=== PATIENT | female | born 1970 | race Caucasian/White ===

== ENCOUNTER 2018-11-04 09:11 | Day surgery (SDC) | payer BC, MEDICARE ==
[~2018-11-04 09:11] MED LIST: CEFAZOLIN 2 Gram 2 GM/50 ML BAG IVPB ONE; MECLIZINE 25 MG TABLET PO ONE
[2018-11-04] MEDS ORDERED: DEXAMETHASONE 4 MG/ML 1ML VIAL IVP ONE (09:12)
[2018-11-04] MEDS ORDERED: ONDANSETRON HCL IV 4 MG/2 ML VIAL IVP ONE (09:12)
[2018-11-04] MEDS ORDERED: ALPRAZOLAM 1 MG TAB PO ONE (09:12)
[2018-11-04] MEDS ORDERED: SEVOFLURANE 250 ML INH ONE (09:12)
[2018-11-04] MEDS ORDERED: PROPOFOL 10 MG/ML VIAL IV ONE (09:12)
[2018-11-04] MEDS ORDERED: LIDOCAINE 2% MDV (20MG/ML) 20ML VIAL IV ONE (09:12)
[2018-11-04] MEDS ORDERED: FENTANYL PF 100MCG/2ML VIAL IV ONE (09:12)
[2018-11-04] MEDS ORDERED: MIDAZOLAM HCL 2MG/2ML VIAL IV ONE (09:12)
[2018-11-04] MEDS ORDERED: BUPIVACAINE 0.25% MPF 30ML VIAL IVP ONE (09:12)
[2018-11-04] MEDS ORDERED: MORPHINE SULFATE PF 10MG/10ML VIAL IV ONE (09:12)
[2018-11-04] MEDS ORDERED: HYDROMORPHONE HCL 2 MG/ML VIAL IV ONE (09:12)
[2018-11-04] MEDS ORDERED: METHYLPREDNISOLONE 40MG/VIAL IM ONE (11:29)
[2018-11-04] MEDS ORDERED: BUPIVACAINE 0.5% W/EPI MPF 30 ML VIAL SQ ONE ×2 (11:29)
[2018-11-04] MEDS ORDERED: MORPHINE SULFATE 5 MG/ML VIAL IM ONE (11:29)
--- NOTE | 2018-11-05 09:41 | Operative Note ---
DATE OF SURGERY: 11/04/2018 PREOPERATIVE DIAGNOSIS: Tear of the rotator cuff on the left. POSTOPERATIVE DIAGNOSES: 1. Chronically torn left rotator cuff tendon. 2. Anterior superior glenohumeral labral tear. 3. Profound left shoulder external impingement. 4. Arthrosis left distal clavicle. OPERATION: 1. Open repair of a chronically torn rotator cuff tear on the left. 2. Left shoulder arthroscopy with intraarticular debridement. 3. Left shoulder open acromioplasty, CA ligament resection, subacromial bursectomy. 4. Left shoulder distal clavicle resection. Staff Surgeon: Mauricio Bellamy MD Anesthesia: General. Preparation: Chloraprep. Individual Considerations: None. PROCEDURE: The patient was taken to the operating room, placed supine on the operating room table. She had a successful induction with general anesthetic. She was then placed in a semi-seated beach chair position. Her left arm and shoulder were prepped and draped in the usual fashion. The patient had posterior portal identified for arthroscopy. Skin was infiltrated with 0.5% Marcaine with epinephrine prior. An 18-gauge spinal needle was easily placed in the joint, and the joint was inflated with normal saline. A stab wound was made, and a blunt-tipped trocar for the scope was placed in the joint. The joint was inflated with normal saline. An anterior accessory portal was then made just inferior to the intact long head of the biceps tendon in a retrograde fashion with a Wissinger susan, and the joint was irrigated out. The patient had an obvious tear of the rotator cuff of the supraspinatus. The long head was intact. Glenohumeral joint was intact. Subscap was normal. No significant synovitis or loose bodies were seen inferiorly. Fraying of the labrum was present anteriorly and superiorly. This was debrided with a shaver. The joint was irrigated out with saline and portals were closed with emmanuelle. The patient had an anterior approach to the subacromial space and distal clavicle. Skin was again infiltrated with 0.5% Marcaine with epinephrine prior. Sharp dissection carried down through skin and subcutaneous tissues. Small veins were coagulated with a Bovie. An anterior deltoid interval was developed. Care was taken not to split the deltoid more than about 4 cm distal to the anterior tip of the acromion to prevent injury to the axillary nerve. Once in the subacromial space, there was a large tang of fluid consistent with a tear. There was downsloping acromion and palpable spurs at the AC joint underneath. The deltoid was then taken subperiosteally off the anterior aspect of the acromion, over the top of the intact CA ligament, and off the anterior aspect of the downsloping acromion and distal clavicle. CA ligament was resected with a Bovie. Distal clavicle was resected with an oscillating saw taking about 1 cm. She had a downsloping acromion, and an anterior acromioplasty was performed taking about 6-7 mm, tapering towards posteromedially to include the spurs at the AC joint. The undersurface was then smoothed with a rasp. An extremely thickened bursa was removed. I now had a good look at the rotator cuff. She had a rather large tear of the supraspinatus which essentially was retracted about 2 cm. It was about 1.5 to 2 cm wide. I was able to debride it to good bleeding tendon. I basically did a VY advancement. I sutured the top maybe 0.5 cm with a buried knot #1 Ethibond suture and then after making a roughened trough in the tuberosity, brought the remaining cuff tendon down into the trough with retention sutures into the end of the freshened tendon and then sutured through holes distally. This essentially gave an excellent repair. There was some tendon which was dog ears which I used to cover the repair which were buried knot 0 Vicryl sutures. I put the shoulder through a full range of motion to ensure no further impingement. After irrigation, the deltoid and reattached to the remaining acromion with multiple interrupted #2 Vicryl going directly through the bony acromion. The periosteal cuff of the distal clavicle was closed with running #1 Vicryl. Anterior deltoid interval was closed with running #1 Vicryl. Subcu was closed with 2-0 plus Vicryl and skin was closed with a running 3-0 Stratafix. An 18-gauge spinal needle was placed into the subacromial space. It was injected with 15 mL of 0.5% Marcaine with epinephrine along with 10 mg of morphine. A sterile bulky compressive dressing and sling were applied. The patient tolerated the procedure well. Needle and sponge counts were correct. Estimated blood loss was minimal. She was taken back to recovery in good condition. There were no complications. TONE
== END 2018-11-04 13:50 | disposition home or self-care (01) ==
LOC: SUR 09:11
PROVIDERS: ATTEND Orthopaedic Surgery
DX: M75.102 Unspecified rotator cuff tear or rupture of left shoulder, not specified as traumatic (principal); S43.432A Superior glenoid labrum lesion of left shoulder, initial encounter; M75.42 Impingement syndrome of left shoulder; M25.712 Osteophyte, left shoulder; R01.1 Cardiac murmur, unspecified
CPT/HCPCS: 23412; 23415; 23120; 29822; 01610; 64415; J2405; J3010; J1170; J0690; 76942; J1030